=== PATIENT | male | born 1980 ===

== ENCOUNTER → 2025-05-28 | Outpatient (REF) | payer OTHER ==
[2025-05-28 18:06] LABS: AMORPHOUS SEDIMENT LARGE (NEGATIVE); BACTERIA, URINE AUTO NEGATIVE (NEGATIVE); MUCUS, URINE SMALL (NEGATIVE); RBC, URINE AUTO 0 /HPF (0-3); SQUAMOUS EPITHELIAL CELL UR AU 0 /HPF (0-6); WBC, URINE AUTO 2 /HPF (0-3)
[2025-05-28 18:30] LABS: TOTAL PROTEIN,RANDOM URINE 8.3 MG/DL (0.0-14.0)
== END ==
LOC: M LAB REF 17:20
PROVIDERS: ATTEND Student in an Organized Health Care Education/Training Program
DX: N18.2 Chronic kidney disease, stage 2 (mild) (principal)